=== PATIENT | male | born 1990 | race American Indian/Alaskan Native ===

== ENCOUNTER 2018-08-06 10:01 | Emergency (ER) | payer SELFPAY ==
[2018-08-06 10:15] VITALS: BP 110/56
[2018-08-06] MEDS ORDERED: ROCEPHIN IM ONE (10:58)
[2018-08-06] MEDS ORDERED: XYLOCAINE 1% MPF 5 mL INFILTRATI ONE (10:58)
[2018-08-06] MEDS ORDERED: ZITHROMAX PO ONE (10:59)
--- NOTE | 2018-08-06 11:00 | Emergency Department Report ---
ED Dysuria HPI - HPI Chief Complaint: Urogenital-Male Stated Complaint: STD CHECK Time Seen by Provider: 08/06/18 10:56 Duration: 2 Days Location of Discomfort: Urethra (dysuria) Severity: Moderate Symptoms: Dysuria: No, Frequency: No, Suprapubic Pain: No, Flank Pain: No, Fever: No, Hematuria: No, Abdominal Pain: No, Previous UTI's: No Other History: Patient is a 28-year-old -[place] male who has a known exposure to an STD. He states that his sexual partner told him that she had a disease and that he needed to be checked. He reports that 2 days ago he also woke up and experienced boxes full of discharge which is new for him. He describes a tingling when he urinates ED Review of Systems ROS: Stated complaint: STD CHECK Other details as noted in HPI Comment: All other systems reviewed and negative Constitutional: denies: see HPI Eyes: denies: as per HPI ENT: denies: ear pain Respiratory: denies: cough Cardiovascular: denies: palpitations Endocrine: denies: excessive sweating Gastrointestinal: denies: abdominal pain Genitourinary: as per HPI, dysuria, discharge Skin: denies: as per HPI, lesions Neurological: denies: weakness Psychiatric: denies: anxiety Hematological/Lymphatic: denies: easy bleeding ED Past Medical Hx - Past Medical History Previous Medical History?: No - Surgical History Past Surgical History?: No - Social History Smoking Status: Never Smoker Substance Use Type: None Dysuria Exam - Exam General: Vital signs noted. No distress. Alert and acting appropriately. Exam: Yes Moist Mucous Membranes, No CVA Tenderness, No Abdominal Tenderness, No Rigidity or Guarding ED Course Vital Signs 08/06/18 10:13 Temperature 97.8 F Pulse Rate 58 L Respiratory 18 Rate Blood Pressure 110/56 O2 Sat by Pulse 100 Oximetry ED Medical Decision Making - Medical Decision Making known exposure std penile dc helena and valente. urine/gc pending Labs 08/06/18 11:19 Urine Color Yellow Urine Turbidity Clear Urine pH 7.0 Ur Specific [place] 1.011 Urine Protein <15 mg/dl Urine Glucose (UA) Neg Urine Ketones Neg Urine Blood Neg Urine Nitrite Neg Urine Bilirubin Neg Urine Urobilinogen < 2.0 Ur Leukocyte Esterase Sm Urine WBC (Auto) 56.0 H Urine RBC (Auto) 3.0 - Differential Diagnosis std exposure and symptoms Critical care attestation.: If time is entered above; I have spent that time in minutes in the direct care of this critically ill patient, excluding procedure time. ED Disposition Clinical Impression: STD (male), Exposure to STD Disposition: DC-01 TO HOME OR SELFCARE Is pt being admited?: No Does the pt Need Aspirin: No Condition: Stable Instructions: Sexually Transmitted Diseases (ED) Referrals: [facility] [Outside] - 3-5 Days Time of Disposition: 10:59
[2018-08-06 11:40] LABS: Bilirubin,Urine NEG (Negative); Blood,Urine NEG (Negative); Color,Urine Yellow (Yellow); Protein,Urine <15 mg/dL mg/dL (Negative); Urobilinogen,Urine < 2.0 mg/dL (<2.0)
== END 2018-08-06 12:29 | disposition home or self-care (01) ==
LOC: ED 10:01
DX: A64 Unspecified sexually transmitted disease (principal); Z20.2 Contact with and (suspected) exposure to infections with a predominantly sexual mode of transmission
CPT/HCPCS: 81001; 87591; 96372; 99283; J0696

== ENCOUNTER 2020-04-28 11:48 | Emergency (ER) | payer SELFPAY ==
[2020-04-28 12:16] VITALS: BP 118/76
--- NOTE | 2020-04-28 12:58 | Emergency Department Report ---
Chief Complaint: Skin/Abscess/Foreign Body Stated Complaint: GENITALS AREA BUMP/PAIN Time Seen by Provider: 04/28/20 12:30 - HPI History of Present Illness: Patient is a 30-year-old male who presents emergency room with complaints of a bump to the groin that began a couple of months ago. He denies any dysuria, penile discharge, pain or swelling in the testicles, fever, nausea, vomiting, diarrhea, abdominal pain. He states that he went to a clinic today and they adv ised him to be seen in the emergency department. He denies any past medical history. No allergies to medications. Vitals are normal On exam: Non toxic appearing, no acute distress atraumatic, normocephalic normal appearance of the eyes, EOMI, no periorbital edema or ecchymosis moist mucus membranes No respiratory distress, no accessory muscle use : Afia Hemphill, vulcanizer, there is a 2 cm genital wart present to the mons pubis, no induration, no drainage, no fluctuance, no necrosis, no blistering, no skin denuding, no tenderness palpation of the testicles, no scrotal edema, normal testicular lie, normal cremasteric reflex, no tenderness palpation or edema of the epididymal appendages bilaterally A&O x4, no focal neuro deficit skin is warm, dry, intact Examination appears most consistent with condyloma could likely be caused by HPV Discussed findings with patient Patient be referred to a sash assembler and primary care physician Advised patient Please follow-up with a sash assembler. I have listed several below. This can be transmitted to other people. Follow-up with a primary care doctor. Return to emergency room for any new or worsening symptoms. Medical screening examination performed there is no threat to life or limb at this time - Exam Vital Signs: Vital Signs 04/28/20 12:12 Temperature 98.3 F Pulse Rate 81 Respiratory 18 Rate Blood Pressure 118/76 O2 Sat by Pulse 99 Oximetry MSE screening note: Focused history and physical exam performed. ED Disposition for MSE Clinical Impression: Condyloma Disposition: Z-07 MED SCREENING EXAM-LEFT Is pt being admited?: No Does the pt Need Aspirin: No Condition: Stable Instructions: Genital Warts (ED) Additional Instructions: Please follow-up with a sash assembler. I have listed several below. This can be transmitted to other people. Follow-up with a primary care doctor. Return to emergency room for any new or worsening symptoms. [facility] Address: [address] [place] [address] [facility] Address: [address] [place] [address] Dr. Luzma Gan MD Address: [address] [place] [address] Geraldo George [facility] Address: [address] [place] [address] [employer] Address: [address] [id number] Referrals: a, dermatolgist [Other] - 2-3 Days Time of Disposition: 12:54 Print Language: FRISIAN
== END 2020-04-28 13:13 | disposition left against medical advice (07) ==
LOC: ED 11:48
DX: R10.2 Pelvic and perineal pain (principal); Z53.21 Procedure and treatment not carried out due to patient leaving prior to being seen by health care provider

== ENCOUNTER 2021-10-19 09:20 | Emergency (ER) | payer SELFPAY ==
--- NOTE | 2021-10-19 09:36 | Emergency Department Report ---
ED Dysuria HPI - HPI Chief Complaint: Urogenital-Male Stated Complaint: POSS UTI Time Seen by Provider: 10/19/21 09:33 Duration: 2 Days Severity: Mild Symptoms: Dysuria: No, Frequency: Yes, Suprapubic Pain: No, Flank Pain: No, Fever: No, Hematuria: No, Abdominal Pain: No, Previous UTI's: No Other History: Patient is a 31-year-old male that comes to the emergency room t stephanie complaining of urinary frequency. He says that it started as a dysuria he thought he had an STD. He had had sex with a female that was protected and then developed the tingling. However, he went to a clinic and was tested for STDs and was clean. So he comes to the ER with his urinary frequency. He denies fever or chills. He denies back pain. He denies abdominal pain. He denies nausea and vomiting. ED Review of Systems ROS: Stated complaint: POSS UTI Other details as noted in HPI Comment: All other systems reviewed and negative ED Past Medical Hx - Past Medical History Previous Medical History?: No - Surgical History Past Surgical History?: No - Family History Family history: no significant - Social History Smoking Status: Never Smoker Substance Use Type: None Dysuria Exam - Exam General: Vital signs noted. No distress. Alert and acting appropriately. Exam: Yes Moist Mucous Membranes, No CVA Tenderness, No Abdominal Tenderness, No Rigidity or Guarding ED Medical Decision Making - Medical Decision Making Lab Results 10/19/21 Range/Units Unknown Urine Color Yellow (Yellow) Urine Turbidity Clear (Clear) Urine pH 6.0 (5.0-7.0) Ur Specific [place] 1.024 (1.003-1.030) Urine Protein <15 mg/dl (Negative) mg/dL Urine Glucose (UA) Neg (Negative) mg/dL Urine Ketones Neg (Negative) mg/dL Urine Blood Neg (Negative) Urine Nitrite Neg (Negative) Urine Bilirubin Neg (Negative) Urine Urobilinogen < 2.0 (<2.0) mg/dL Ur Leukocyte Esterase Neg (Negative) Urine WBC (Auto) 1.0 (0.0-6.0) /HPF Urine RBC (Auto) Not Reportable Urine Mucus Few /HPF vs normal as documented by RN I discussed findings with patient. He is being discharged home with PCP follow- up. Patient educated on safe sex. dc home with dc plan of care. He verbalizes understanding of plan of care including diet, activity, meds and follow up. - Differential Diagnosis ro uti Critical care attestation.: If time is entered above; I have spent that time in minutes in the direct care of this critically ill patient, excluding procedure time. ED Disposition Clinical Impression: Urinary frequency Disposition: 01 HOME / SELF CARE / HOMELESS Is pt being admited?: No Does the pt Need Aspirin: No Condition: Stable Instructions: Urinary Frequency, Adult Additional Instructions: FOLLOW UP WITH PCP REFERRAL BELOW Referrals: PRIMARY MD HALINA [Primary Care Provider] - 3-5 Days KATIE MATHEW MD [Staff Physician] - 3-5 Days Time of Disposition: 10:50
[2021-10-19 10:42] LABS: Color,Urine Yellow (Yellow)
[2021-10-19 10:43] LABS: Bilirubin,Urine NEG (Negative); Blood,Urine NEG (Negative); Mucus,Urine FEW /HPF; Protein,Urine <15 mg/dL mg/dL (Negative); Urobilinogen,Urine < 2.0 mg/dL (<2.0)
[2021-10-19 10:57] VITALS: BP 112/67
== END 2021-10-19 10:58 | disposition home or self-care (01) ==
LOC: ED 09:20
DX: R35.0 Frequency of micturition (principal)
CPT/HCPCS: 81001; 99283